=== PATIENT | female | born 1990 | race Caucasian/White ===

== ENCOUNTER 2024-04-27 01:56 | Emergency (ER) | payer OTHER ==
--- OUTSIDE RECORDS SUMMARY | 2024-04-27 01:58 | XMS REPORT | Continuity of Care Document ---
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 Role Phone Unavailable Unavailable Unavailable Allergies, Adverse Reactions, Alerts Allergy Name Allergy Type Status Severity Reaction(s) Onset Date Inactive Date Treating Clinician Comments Source Bactrim Allergy to substanc e Active Encephalitis [facility] Social History Smoking Status Start Date Stop Date Source Former Smoker [facility] Vital Signs Vital Name Observation Time Observation Value Comments S ource BP Systolic 2024-03-07 00:00:00 117 mm[Hg] [facility] Body Weight 2024-03-07 00:00:00 189 [lb_av] [facility] BMI (Body Mass Index) 2024-03-07 00:00:00 31.5 kg/m2 [facility] Height 2024-03-07 00:00:00 65 [in_i] [facility] BP Diastolic 2024-03-07 00:00:00 80 mm[Hg] [facility] Encounters Start Date/Time End Date/Time Encounter Type Admission Type Attending Clinicians Care Facility Care Department Encounter ID Source 2024-03-07 00:00:00 2024-03-07 00:00:00 Mitzy Stahl, AUDIO VISUAL TECH: [address], [place] [address] , [facility] [employer] [phone] [id number] [facility] 2024-03-04 15:30:20 2024-03-04 15:30:20 Outpatient [facility] [id number] Deondre Freeman Results Test Description Test Time Test Comments Results Result Co mments Source [facility] [id number] 14:10:41* Test Item Value Reference Range Interpretation Comme nts HCG (test code = HCG) positive [facility]
[2024-04-27 02:51] LABS: Absolute Eosinophils 0.2 K/uL (0-0.5); Absolute Lymphocytes (CBC) 2.1 K/uL (0.7-4.9); Absolute Monocytes 0.6 K/uL (0.1-1.3); Absolute Neutrophil 6.9 K/uL (1.8-8.0); Basophils % 0.3 % (0-1.3); Eosinophils % 1.7 % (0-4.4); Hematocrit 33.7 % (36.0-45.0); Hemoglobin 11.5 g/dL (12.0-15.0); Lymphocytes % 21.4 % (15.3-44.8); MCH 28.6 pg (27.0-35.0); MCV 84.3 fL (80-100); MPV 11.2 fL (7.6-11.3); Neutrophils % 70.6 % (41.7-73.7); Nucleated Red Blood Cells % 0.1 % (0-0); Platelets 170 thou/uL (152-406); Red Cell Distribution Width 13.1 % (12.1-15.2)
[2024-04-27 03:47] LABS: Anion Gap 11.4 mEq/L (5.0-15.0); Potassium 3.4 mEq/L (3.5-5.1)
--- NOTE | 2024-04-27 06:40 | RAD REPORT ---
PROCEDURE: US First Trimester , Transabdominal and Transvaginal and US Duplex Arterial/Venous of the Pe lvis, Complete CLINICAL INDICATION: The patient is 33 years old and is Female; VAGINAL BLEEDING Bed Name: 7 TECHNIQUE: Real-time transabdominal and transvaginal obstetrical ultrasound of the maternal pelvis and a first t rimester with image documentation. Transvaginal imaging was used for better evaluation of the fetus and adnexa. Real-time duplex ultrasound scan of the arterial and venous flow of the pe lvis with color Doppler flow and spectral waveform analysis. COMPARISON: No relevant prior studies available. FINDINGS: GESTATION: No definite IUP identified. Thickened heterogenous appearance of the endometrium, measur ing up to 2.4 cm. PLACENTA/AMNIOTIC FLUID: Cannot be adequately evaluated due to the early gestational age. UTERUS/CERVIX: Retroverted uterus. No myometrial mass. The uterus measures 11.4 x 5.2 x 5.7 cm. RIGHT OVARY: No torsion. The right ovary measures 2 x 2.7 x 1.8 cm with a volume of 5.09 ml. 1.3 cm corpus luteal cyst demonstrated. LEFT OVARY: Left ovary nonvisualized. FREE FLUID: No free fluid. IMPRESSION: No definite IUP identified. Thickened heterogenous appearance of the endometrium, measuring up to 2.4 cm. Correlation with beta hCG levels recommended. If positive, findings could reflect an early IUP, a failed , or nonvisualized ectopic . Recommend further characterization with short-term follow-up pelvic ultrasound and trending beta hCG levels. Electronically signed by: Shawn Murrieta MD 04/27/2024 06:35 AM [facility] Due to temporary technical issues with the [employer]ACS/[employer] reporting system, reports are being sign ed by the in-house radiologist without review as a courtesy to ensure prompt reporting the interpreting rad iologist is fully responsible for the content of the report. Transcribed Date/Time: 04/27/2024 6:40 AM
--- NOTE | 2024-04-27 06:45 | EDPHYS ---
Physician Documentation [facility] Name: Emili Jiménez Age: 33 yrs Sex: Female : 1990 Arrival Date: 04/27/2024 Time: 01:56 Bed 7 Private MD: ED Physician Mj Whitley HPI: 04/27 04:24 This 33 yrs old Female presents to ER via Wheelchair with complaints of Vaginal ms3 Bleeding. 04:24 33-year-old female, -0-4-0 presents to the emergency department for vaginal ms3 bleeding. Patient states she is currently having a miscarriage and was diagnosed with a blighted ovum. Patient notes she was passing tissue and blood prior to arrival. Patient states her bleeding began at 4:30 AM yesterday. Patient states she seeks obstetrical care at [facility].. 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 - Infectious Disease History:: Denies. - Social history:: Smoking status: Reported history of juuling and/or vaping. Patient uses alcohol, occasionally. ROS: 04:24 Constitutional: Negative for fever, and chills. Cardiovascular: Negative for chest ms3 pain, and palpitations. Respiratory: Negative for shortness of breath, cough, wheezing, and pleuritic chest pain, Abdomen/GI: Negative for abdominal pain, nausea, vomiting, diarrhea, and constipation, 04:24 Skin: Negative for injury, rash, and discoloration, 04:24 : Positive for vaginal bleeding, Exam: 04:24 Constitutional: This is a well developed, well nourished patient who is awake, alert, ms3 and in no acute distress. Cardiovascular: Regular rate and rhythm with a normal S1 and S2. No gallops, murmurs, or rubs. Normal PMI, no JVD. No pulse deficits. Respiratory: Lungs have equal breath sounds bilaterally, clear to auscultation and percussion. No rales, rhonchi or wheezes noted. No increased work of breathing, no retractions or nasal flaring. Abdomen/GI: Soft, non-tender, with normal bowel sounds. No distension or tympany. No guarding or rebound. No evidence of tenderness throughout. 04:24 Skin: Warm, dry with normal turgor. Normal color with no rashes, no lesions, and no evidence of cellulitis. Vital Signs: 02:22 BP 108 / 84; Pulse 105; Resp 18; Temp 97.3(O); Pulse Ox 100% on R/A; Weight 87.54 kg; br2 Height 5 ft. 5 in. ; Pain 0/10; 03:19 BP 108 / 76; Pulse 86; Resp 18; Pulse Ox 100% ; cp4 03:53 BP 110 / 84; Pulse 99; Resp 17; Pulse Ox 100% on R/A; br2 04:13 BP 106 / 75; Pulse 100; Resp 16; Pulse Ox 99% on R/A; br2 05:18 BP 103 / 70; Pulse 89; Resp 18; Pulse Ox 100% ; cp4 05:55 BP 118 / 77; Pulse 95; Resp 18; Pulse Ox 95% on R/A; br2 06:22 BP 125 / 78; Pulse 114; Resp 16; Pulse Ox 100% on R/A; br2 06:45 Pulse 93; ms3 06:57 BP 124 / 80; Pulse 94; Resp 18 S; Pulse Ox 99% on R/A; br2 02:22 Body Mass Index 32.12 (87.54 kg, 165.1 cm) br2 02:22 Pain Scale: Adult br2 MDM: 02:07 Medical Screening Exam initiated ms3 04:24 Differential diagnosis: dysfunctional uterine bleeding, complete Ab, retained Ab, ms3 missed Ab. 06:45 Data reviewed: vital signs, nurses notes, lab test result(s), radiologic studies, and ms3 as a result, I will discharge patient. Counseling: I had a detailed discussion with the patient and/or guardian regarding the historical points, exam findings, and any diagnostic results supporting the discharge/admit diagnosis, lab results, radiology results, the need for outpatient follow up, to return to the emergency department if symptoms worsen or persist or if there are any questions or concerns that arise at home. Special discussion: I discussed with the patient/guardian in detail that at this point there is no indication for admission to the hospital. It is understood, however, that if the symptoms persist or worsen the patient needs to return immediately for re-evaluation. ED course: On reevaluation patient states her bleeding has subsided, heart rate 93. Patient is alert and oriented x 4, no apparent distress, nontoxic-appearing, speaking full sentences. Discussed discharge with patient and she agrees at this time. 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 Patient understands and agrees with plan. All questions were answered. Return precautions discussed include worsening symptoms, shortness of breath, lightheadedness, or any other concerns.. 04/27 02:08 Order name: Basic Metabolic Panel; Complete Time: 04:00 ms3 04/27 02:08 Order name: CBC with Diff; Complete Time: 04:00 ms3 04/27 02:08 Order name: Quantitative Hcg; Complete Time: 04:00 ms3 04/27 02:08 Order name: Type And Screen; Complete Time: 04:00 ms3 04/27 02:08 Order name: US OB Limited ms3 04/27 02:08 Order name: IV Saline Lock; Complete Time: 02:24 ms3 04/27 02:08 Order name: Labs collected and sent; Complete Time: 02:24 ms3 04/27 02:08 Order name: NPO; Complete Time: 02:24 ms3 Administered Medications: No medications were administered Disposition Summary: 04/27/24 06:45 Discharge Ordered Notes: Location: Home ms3 Condition: Stable ms3 Diagnosis - Complete or unspecified spontaneous without complication ms3 Followup: ms3 - With: Private Physician - When: 1 - 2 days - Reason: Recheck today's complaints Discharge Instructions: - Discharge Summary Sheet ms3 - Miscarriage ms3 Forms: - Medication Reconciliation Form ms3 - Antibiotic Education ms3 - Prescription Opioid Use ms3 - Patient Portal Instructions ms3 - Leadership Thank You Letter ms3 Signatures: Dispatcher [employer] EDMS Mj Whitley DO DO ms3 Bree Escobedo RN RN br2 Corrections: (The following items were deleted from the chart) 02:08 02:08 OB Limited+.LALO ordered. EDMS EDMS
--- NOTE | 2024-04-27 06:45 | ER ---
Nurse's Notes [facility] Name: Emili Jiménez Age: 33 yrs Sex: Female : 1990 Arrival Date: 04/27/2024 Time: 01:56 Bed 7 Private MD: Diagnosis: Complete or unspecified spontaneous without complication Presentation: 04/27 02:22 Chief complaint: Patient states: PT ARRIVES TO ER WITH VAGINAL BLEEDING. PT STATES SHE br2 IS APPROX 11 WEEKS PREG. PT STARTED BLEEDING SOME YESTERDAY BUT IT STOPPED AND SHE WENT TO WORK TODAY. 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 PT BROUGHT TO ER BY HER BOSS AND HE STATES SHE PASSED OUT ON THE WAY TO ER. PT PALE ON ARRIVAL WITH PANTS AND CHAIR SATURATED WITH VAGINAL BLOOD. Coronavirus screen: Client denies travel out of the [place] in the last 14 days. Ebola Screen: Patient denies exposure to infectious person. Initial Sepsis Screen: Does the patient meet any 2 criteria? HR > 90 bpm. Does the patient have a suspected source of infection? No. Patient's initial sepsis screen is negative. Risk Assessment: Do you want to hurt yourself or someone else? Patient reports no desire to harm self or others. Onset of symptoms was April 27, 2024 at 01:00. 02:22 Method Of Arrival: Wheelchair br2 02:22 Acuity: DOROTHEA 2 br2 Triage Assessment: 02:26 General: Appears uncomfortable, Behavior is calm, cooperative. Pain: Denies pain. br2 Neuro: Level of Consciousness is awake, alert, obeys commands, Oriented to person, place, time, situation. Cardiovascular: Capillary refill < 3 seconds. Respiratory: Airway is patent Respiratory effort is even, unlabored, Respiratory pattern is regular, symmetrical. : Reports vaginal bleeding that is bright red, with clots, heavy flow. Derm: Skin is pale, Skin temperature is cool. 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 - Infectious Disease History:: Denies. - Social history:: Smoking status: Reported history of juuling and/or vaping. Patient uses alcohol, occasionally. Screenin:22 [facility] ED Fall Risk Assessment (Adult) History of falling in the last 3 months, br2 including since admission No falls in past 3 months (0 pts) Confusion or Disorientation No (0 pts) Intoxicated or Sedated No (0 pts) Impaired Gait No (0 pts) Mobility Assist Device Used No (0 pt) Altered Elimination No (0 pt) Score/Fall Risk Level 0 - 2 = Low Risk Oriented to surroundings. Abuse screen: Denies threats or abuse. Denies injuries from another. Nutritional screening: No deficits noted. Tuberculosis screening: No symptoms or risk factors identified. Assessment: 02:15 Reassessment: ASSISTED PT OUT OF HER PANTS, PT HAD HUGE BLOOD CLOT IN UNDERWEAR. PT br2 CLEANED HER SELF UP AND I HELPED HER PUT A GOWN ON WITH BRIEF AND A PAD. 03:20 Reassessment: see triage assessment. br2 05:56 Reassessment: Patient and/or family updated on plan of care and expected duration. Pain br2 level reassessed. Patient is alert, oriented x 3, equal unlabored respirations, skin warm/dry/pink. Patient states feeling better. Patient states symptoms have improved. 06:57 Reassessment: Patient and/or family updated on plan of care and expected duration. Pain br2 level reassessed. Patient is alert, oriented x 3, equal unlabored respirations, skin warm/dry/pink. OUT OF BED AND AMBULATED IN HALLWAY. PT STATES SHE ISN'T HAVING ANYMORE VAGINAL BLEEDING. Patient states feeling better. Patient states symptoms have improved. Pain: Denies pain. Vital Signs: 02:22 BP 108 / 84; Pulse 105; Resp 18; Temp 97.3(O); Pulse Ox 100% on R/A; Weight 87.54 kg; br2 Height 5 ft. 5 in. ; Pain 0/10; 03:19 BP 108 / 76; Pulse 86; Resp 18; Pulse Ox 100% ; cp4 03:53 BP 110 / 84; Pulse 99; Resp 17; Pulse Ox 100% on R/A; br2 04:13 BP 106 / 75; Pulse 100; Resp 16; Pulse Ox 99% on R/A; br2 05:18 BP 103 / 70; Pulse 89; Resp 18; Pulse Ox 100% ; cp4 05:55 BP 118 / 77; Pulse 95; Resp 18; Pulse Ox 95% on R/A; br2 06:22 BP 125 / 78; Pulse 114; Resp 16; Pulse Ox 100% on R/A; br2 06:45 Pulse 93; ms3 06:57 BP 124 / 80; Pulse 94; Resp 18 S; Pulse Ox 99% on R/A; br2 02:22 Body Mass Index 32.12 (87.54 kg, 165.1 cm) br2 02:22 Pain Scale: Adult br2 ED Course: 02:06 Patient arrived in ED. cp4 02:07 Mj Whitley DO is Attending Physician. ms3 02:22 Patient has correct armband on for positive identification. Placed in gown. Bed in low br2 position. Call light in reach. Provided Education on: PLAN OF CARE. 02:26 Triage completed. br2 02:45 Door closed. Warm blanket given. br2 03:00 US OB Limited In Process Unspecified. EDMS 03:19 Bree Escobedo, RN is Primary Nurse. br2 03:21 Assist provider with pelvic exam: Performed by Mj Whitley DO Patient tolerated well. br2 06:57 IV discontinued, intact, bleeding controlled, No redness/swelling at site. Pressure br2 dressing applied. Administered Medications: No medications were administered Outcome: 06:45 Discharge ordered by MD. ms3 06:57 Discharged to home ambulatory, br2 06:57 Discharged to home via wheelchair, 06:57 Condition: improved 06:57 Discharge instructions given to patient, Instructed on discharge instructions, follow up and referral plans. Demonstrated understanding of instructions, follow-up care, 07:00 Patient left the ED. br2 Signatures: Dispatcher [employer] EDMS Mj Whitley DO DO ms3 Mariah Eduardo cp4 Bree Escobedo, RN RN br2 Corrections: (The following items were deleted from the chart) 03:21 03:20 Reassessment: see triage assessment br2 br2 03:56 03:53 BP 110 / 84; Pulse 116bpm; Resp 26bpm; Pulse Ox 100% RA; br2 br2 05:56 04:26 Reassessment: ASSISTED PT OUT OF HER PANTS, PT HAD HUGE BLOOD CLOT IN UNDERWEAR. br2 PT CLEANED HER SELF UP AND I HELPED HER PUT A GOWN ON WITH BRIEF AND A PAD br2
[2024-04-27 07:05] VITALS: TEMP 97.3
[2024-04-27 07:18] VITALS: BP 124/80; O2SAT 99
== END 2024-04-27 07:00 | disposition home or self-care (01) ==
LOC: ER 01:56
DX: O03.9 Complete or unspecified spontaneous abortion without complication (principal)
CPT/HCPCS: 36415; 76815; 80048; 84702; 85025; 86850; 86900; 86901; 99283